=== PATIENT | male | born 1965 | race Caucasian/White ===

== ENCOUNTER 2017-03-13 09:56 | Day surgery (SDC) | payer OTHER ==
[~2017-03-13] VITALS: Ht 193 cm; Wt 104.3 kg
[~2017-03-13 09:56] MED LIST: CIMETIDINE 200200 MG PO; PROVENTIL HFA IN; QVAR80 MCG/ACT IN
[2017-03-13 11:39] VITALS: BP 113/76
== END 2017-03-13 11:45 | disposition home or self-care (01) | DRG 951 ==
LOC: ORM 09:56
PROVIDERS: ATTEND Internal Medicine Gastroenterology
PROC: 0DJD8ZZ Inspection of Lower Intestinal Tract, Via Natural or Artificial Opening Endoscopic (ICD-10-PCS; principal; 2017-03-13)
DX: Z12.11 Encounter for screening for malignant neoplasm of colon (principal); K64.8 Other hemorrhoids; K64.4 Residual hemorrhoidal skin tags; K21.9 Gastro-esophageal reflux disease without esophagitis

== ENCOUNTER 2018-10-22 11:00 | Day surgery (SDC) | payer OTHER ==
[~2018-10-22] VITALS: Ht 193 cm; Wt 104.3 kg
[2018-10-22] MEDS ORDERED: LOSARTAN POT25 MG PO (11:48)
[2018-10-22] MEDS ORDERED: PRILOSEC20 MG/CAP PO (11:48)
[2018-10-22 14:38] VITALS: BP 122/81
== END 2018-10-22 14:50 | disposition home or self-care (01) | DRG 382 ==
LOC: ENDO 11:00 → ORM 15:45
PROVIDERS: ATTEND Internal Medicine Gastroenterology
PROC: 0DD58ZX Extraction of Esophagus, Via Natural or Artificial Opening Endoscopic, Diagnostic (ICD-10-PCS; principal; 2018-10-22)
PROC: 0DB58ZX Excision of Esophagus, Via Natural or Artificial Opening Endoscopic, Diagnostic (ICD-10-PCS; 2018-10-22)
PROC: 0DB78ZX Excision of Stomach, Pylorus, Via Natural or Artificial Opening Endoscopic, Diagnostic (ICD-10-PCS; 2018-10-22)
DX: K22.10 Ulcer of esophagus without bleeding (principal); K22.2 Esophageal obstruction; K29.50 Unspecified chronic gastritis without bleeding; Z79.899 Other long term (current) drug therapy; K21.0 Gastro-esophageal reflux disease with esophagitis; K44.9 Diaphragmatic hernia without obstruction or gangrene; F10.10 Alcohol abuse, uncomplicated; B96.81 Helicobacter pylori [H. pylori] as the cause of diseases classified elsewhere

== ENCOUNTER 2022-10-30 13:10 | Observation (INO) | payer OTHER ==
[~2022-10-30] VITALS: Ht 193 cm; Wt 113.0 kg
[2022-10-30] VITALS (13 sets, daily range): BP systolic 98–133; BP diastolic 62–89
[~2022-10-30 13:10] MED LIST changes: +LOSARTAN POT25 MG PO; +PRILOSEC20 MG/CAP PO
[2022-10-30 13:40] LABS: BASO% 0.7 % (0-3); EOS% 2.9 % (0-8); HEMATOCRIT 44.8 % (39.0-50.0); HEMOGLOBIN 15.3 g/dl (14.0-18.0); IMMATURE GRANULOCYTES 0.5 % (0.0-5.0); LYMPH% 37.2 % (15-41); MEAN CELL VOLUME 86.2 fL CALC (80.0-100.0); MEAN CORPUSCULAR HGB 29.4 pG CALC (26.0-32.0); MEAN CORPUSCULAR HGB CONC 34.2 g/dL CAL (32.0-36.0); MONO% 8.6 % (2-13); NEUT# 4.35 thou/uL (1.82-7.42); NEUT% 50.1 % (42-76); RED BLOOD COUNT 5.2 mill/uL (4.70-6.10); RED CELL DISTRI WIDTH 13.7 % (11.5-15.5)
[2022-10-30 13:50] LABS: ALBUMIN 4.4 g/dL (3.2-5.0); ALKALINE PHOSPHATASE 61 u/l (38-126); ANION GAP 15 (6-22 (CALC)); BILIRUBIN, TOTAL 0.7 mg/dL (0.2-1.3); BUN 17 mg/dL (9-20); BUN/CREATININE RATIO 14 (12-20 (CALC)); CARBON DIOXIDE 24 mmol/l (22-30); CHLORIDE 103 mmol/l (95-108); CREATININE 1.3 mg/dL (0.7-1.3); GFR FOR AFR.AMER. > 60 ML/MIN (>=60 (CALC)); GFR OTHER RACES 57 ML/MIN (>=60 (CALC)); POTASSIUM 4.2 mmol/l (3.5-5.1); SGOT/AST 48 u/l (17-59); SODIUM 138 mmol/l (137-146); TOTAL PROTEIN 7.7 g/dL (6.3-8.2)
[2022-10-30] MEDS ORDERED: METFORMIN HCL500 M1 PO (16:15)
[2022-10-31] VITALS: BP 101/62
[2022-10-31 01:25] LABS: URINE BILIRUBIN - DIPSTICK NEGATIVE (NEGATIVE); URINE BLOOD DIPSTICK NEGATIVE (NEGATIVE); URINE COLOR YELLOW; URINE GLUCOSE - DIPSTICK NEGATIVE (NEGATIVE); URINE KETONE NEGATIVE (NEGATIVE); URINE LEUK ESTERASE NEGATIVE (NEGATIVE); URINE NITRITE - DIPSTICK NEGATIVE (Negative); URINE PH 6.5 (4.5-8.0); URINE PROTEIN - DIPSTICK NEGATIVE (NEG-TRACE)
[2022-10-31 04:35] VITALS: BP 121/77
[2022-10-31 05:42] VITALS: BP 121/77
[2022-10-31 06:26] LABS: CHOLESTEROL HDL RATIO 2.9 (<4.4 (CALC)); MAGNESIUM 1.7 mg/dL (1.6-2.3)
[2022-10-31 07:30] VITALS: BP 127/82
[2022-10-31 12:00] VITALS: BP 118/73
[2022-10-31] MEDS ORDERED: ASPIRIN 81 LOW81 MG PO (13:24)
== END 2022-10-31 14:21 | disposition home or self-care (01) | DRG 313 ==
LOC: ED 13:10 → ED-I 16:05 → ED 16:23 → MS2 16:24
PROVIDERS: Nurse Practitioner; ADMIT Internal Medicine; ATTEND Internal Medicine
DX: R07.89 Other chest pain (principal); I95.9 Hypotension, unspecified; I10 Essential (primary) hypertension; E11.9 Type 2 diabetes mellitus without complications; Z79.84 Long term (current) use of oral hypoglycemic drugs
CPT/HCPCS: G0378; J1650